=== PATIENT | male | born 1950 | race Caucasian/White ===

== ENCOUNTER → 2016-06-30 | Outpatient (CLI) | payer MEDICARE ==
[2015-08-29] VITALS: BP 129/76
[~2016-06-30] MED LIST: ASPI81TA2 PO; CETI10TA22 PO; COLE3.754 PO; LISI10TA2 PO
--- NOTE | 2016-06-30 16:40 | RAD ---
Examination: CT head without contrast History: History of severe headache, drainage from sinuses for 2 to 3 weeks Comparison: 08/28/2015 Technique: Axial CT images of the head was performed without contrast PQRS Compliance Statement: One or more of the following individualized dose reduction techniques were utilized for this examination: 1. Automated exposure control 2. Adjustment of the mA and/or kV according to patient size 3. Use of iterative reconstruction technique Findings: There is no evidence of midline shift. There is no acute intracranial bleed or extraaxial fluid collection identified. The artis-white matter differentiation is maintained. The lateral ventricles, third ventricle, fourth ventricle are appropriate for age. The basal cisterns are uneffaced. The visualized paranasal sinuses, mastoid air cells are clear Impression: No acute intracranial findings.
== END | disposition home or self-care (01) ==
LOC: RAD 16:05
PROVIDERS: ATTEND Family Medicine
DX: R53.81 Other malaise (principal); R51 Headache
CPT/HCPCS: 70450

== ENCOUNTER 2016-07-09 23:39 | Emergency (ER) | payer MEDICARE ==
[~2016-07-09] VITALS: Ht 170.2 cm; Wt 83.5 kg
--- NOTE | 2016-07-09 23:44 | PHYS DOC ---
General Time Seen by MD: 23:42 Source: patient, family Problems: History of Present Illness Initial Comments Patient here with his for possible allergic reaction. Patient was doing fairly well over the course today when about an hour ago his noted that he was turning red. Since that time, is any increasing redness over the face, upper extremity is, and torso, as well as a feeling of warmth and itchiness. He now feels like his throat is slightly tightly slightly short of breath and nauseated as well. He's had no fever or chills today. His said he did have a temperature of 99.8 this morning. There is no runny nose or sore throat. There is no earache. There is no cough. There is no other chest pain or shortness of breath other than some very slight dyspnea at this time. There is no vomiting. No abdominal pain. There is no change amount of bladder habits. He denies any acute focal extremity or neurologic complaints. Patient is done nothing for this at home other than present for care. Patient has recently been on a ten-day course of Septra for which she was prescribed for sinusitis. He has 1 tablet left. He has no other new medications of any kind is used, and no other new [id number] products. There is no new bath or body products, no chemical exposures, no new foods, no new clothes, no new laundry detergents or soaps. There is no other new exposures of any kind. There is no other increased or decreasing factors noted. He says he never had a reaction like this before. Patient's past medical history is remarkable for high blood pressure. He also says he has eczema. He is a nonsmoker and occasional user of ethanol. Allergies: Coded Allergies: Penicillins (Verified Allergy, Unknown, 08/28/15) Past Medical History Medical History: hypertension Social History Smoker: non-smoker Alcohol: occasionally Review of Systems All Other Systems: Reviewed and Negative Physical Exam General Appearance: WD/WN, no apparent distress Ear, Nose, Throat: normal ENT inspection, normal pharynx Neck: full range of motion, supple, normal inspection Respiratory: lungs clear, normal breath sounds, no respiratory distress Cardiovascular: regular rate, rhythm, no edema, no gallop Gastrointestinal: non tender, soft, no organomegaly Back: no CVA tenderness, no vertebral tenderness Extremities: non-tender Neurologic/Psychiatric: alert, normal mood/affect, oriented x 3 Skin: normal color, rash Comments Generally this is a well-developed well-nourished white male in no acute distress. Vitals are as noted. Pertinent findings on physical exam shows ears and throat to be clear. There is no dysphagia or dysphonia or problems with secretions noted. Neck is supple without adenopathy or JVD. There's no meningeal signs. Chest is clear to auscultation bilaterally. There is no wheeze. There is good airflow. There is no tachypnea and no retractions. He verbalizes without difficulty. He's in no respiratory distress. Cardiac vascular exam shows regular rate and rhythm without murmur. The abdomen is soft and nontender. Back shows no CVA tenderness. Extremities show no cyanosis or edema. Patient does have a fairly confluent erythema over the face and the upper arms, which becomes more discrete as one moves lower in the upper extremity is. Over the torso, the patient has a rash consisting of discrete well -circumscribed red macules over the chest, back, and abdomen. There is no urticaria. There is no signs of cellulitis or infection. Overall, this is consistent with a possible drug reaction. Lower extremity is relatively clear. Neurologic exam finds be awake alert oriented and cooperative. Remainder of physical exam is clinically unremarkable. Orders, Labs, Meds Old charts note a single prior ER visit for leg cramping. 0050 Patient resting comfortably in the ED. His rash is still present, but less fiery red, and he looks more comfortable as well. also thinks he significantly improved. He continues to have no problems with dysphasia or dysphonia continues to have no signs of respiratory distress. I discussed with the patient's most likely diagnosis of probable drug reaction. This is likely due to the Septra. He only has one dose left, and I last stop the Septra. We'll go ahead and prescribe Benadryl Pepcid and prednisone for his use at home over the next several well. We also discussed home care including rest and cool compresses the areas of rash. He voices understanding need to follow up with primary care or return to the ER sooner needed as needed if worsening anyway. We've asked especially to return for throat tightness, dysphagia, dysphonia, or shortness of breath. His and he both seem reasonably medically aware and I think she will help take excellent care of the patient home. Patient looks improved, in no acute discomfort or stress, okay for discharge home at this time. HORACE SIERRA MD Jul 09, 2016 23:44
[2016-07-10] MEDS ORDERED: methylPREDNISolone SOD SUCC PF 125 MG/2 ML VIAL. IV ONE
[2016-07-10] MEDS ORDERED: DIPHENHYDRAMINE 50 MG/ML VIAL IVP ONE
[2016-07-10] MEDS ORDERED: FAMOTIDINE 20 MG/2 ML VIAL IVP ONE
[2016-07-10 01:04] VITALS: BP 130/51
== END 2016-07-10 01:07 | disposition home or self-care (01) ==
LOC: ER 23:39
DX: R06.02 Shortness of breath (principal); R11.0 Nausea; R21 Rash and other nonspecific skin eruption; I10 Essential (primary) hypertension; Z88.0 Allergy status to penicillin
CPT/HCPCS: 96374; 96375; 99284; J1200; J2930; S0028

== ENCOUNTER 2017-03-11 14:15 | Emergency (ER) | payer MEDICARE ==
[~2017-03-11 14:15] MED LIST changes: +ASPI-630 PO; -ASPI81TA2 PO; +COLE3.753 PO; -COLE3.754 PO
[2017-03-11 14:18] VITALS: BP 154/73
[2017-03-11] MEDS ORDERED: DIPHTH,PERTUSS(ACELL),TET TOX 0.5 ML DISP.SYRIN. VAX IM ONE (14:45)
[2017-03-11] MEDS ORDERED: DOXY100C2 PO (15:12)
--- NOTE | 2017-03-11 15:13 | PHYS DOC ---
Past History Past Medical History: High Cholesterol, Hypertension Past Surgical History: No Surgical History Alcohol Use: None Drug Use: None Adult General Chief Complaint Chief Complaint: LACERATION/AVULSION HPI HPI Patient is a 66-year-old gentleman who presents here today secondary to laceration to his left thumb. Patient is concerned that it was dirty. Patient thinks that there was dirt and duy metal in there. Patient reports that he removed 2 pieces of small duy metal from his thumb laceration prior to arrival. Patient has no other complaints. Patient's tetanus status is not up-to- date. Patient has no neurological deficits. Review of systems: Constitutional: Denies fever or chills Eyes: Denies change in visual acuity, redness, or eye pain HENT: Denies nasal congestion or sore throat Respiratory: Denies cough or shortness of breath All other systems were reviewed and found to be within normal limits, except as documented in this note. Physical exam: Constitutional: Well developed, well nourished, no acute distress, non-toxic appearance. HENT: Normocephalic, atraumatic, bilateral external ears normal, nose normal. Eyes: PERRLA, EOMI, conjunctiva normal, no discharge. Neck: Normal range of motion, no tenderness, supple, no stridor. Back: Normal spinal curvature Extremities: No tenderness, no cyanosis, no clubbing, ROM intact, no edema. Neurologic: Alert and oriented X 3, normal motor function, normal sensory function, no focal deficits noted. Psychologic: Affect normal, judgement normal, mood normal. Patient's ER physical exam was most unremarkable: Left thumb IP joint with a 2 cm horizontal laceration. No foreign body identified. Wound was anesthetized with 1 mL of plain lidocaine. Wound was explored extensively and there is no further any foreign bodies visualized. Wound was irrigated with 100 mL of normal saline with high flow irrigation. X-ray of left thumb reveals no foreign body. Assessment and plan: 1. Laceration to thumb. No indication for suture. We will apply Dermabond and put a thumb splint on. Patient be sent home with Keflex secondary to the nature of how dirty wound was per his report. Current Medications Current Medications Current Medications Medications (Trade) Dose Ordered Sig/Demarco Start Time Stop Time Status Last Admin Dose Admin Diphtheria/ Tetanus/Acell Pertussis (Boostrix) 0.5 ml ONCE ONCE 03/11/17 14:45 03/11/17 14:47 DC Allergies Allergies Allergies Coded Allergies Type Severity Reaction Last Updated Verified Penicillins Allergy Unknown 08/28/15 Yes sulfamethoxazole Allergy Unknown 03/11/17 Yes trimethoprim Allergy Unknown 03/11/17 Yes EKG EKG [] Radiology/Procedures Radiology/Procedures [] Course & Med Decision Making Course & Med Decision Making Pertinent Labs and Imaging studies reviewed. (See chart for details) [] Dragon Disclaimer Dragon Disclaimer This electronic medical record was generated, in whole or in part, using a voice recognition dictation system. Departure Departure: Impression: Primary Impression: Laceration of left thumb Disposition: HOME, SELF-CARE Condition: IMPROVED Referrals: FELIBERTO ABRAHAM (PCP) Patient Instructions: Wound Care, [id number] Additional Instructions: 1. Take antibiotics as prescribed. 2. Leave splint on for 5-7 days.\ 3. Return to the ER if any redness swelling increased pain or drainage.. Scripts Doxycycline Hyclate (DOXYCYCLINE HYCLATE) 100 Mg Capsule 1 CAP PO BID, #14 CAP Prov: KASSANDRA TOPETE MD 03/11/17 KASSANDRA TOPETE MD Mar 11, 2017 15:13
[2017-03-11] MEDS ORDERED: DOXYCYCLINE HYCLATE 100 MG TABLET PO ONE (15:30)
--- NOTE | 2017-03-12 08:10 | RAD ---
FINGER(S) LEFT History: Cut left thumb on a blade today, hand pain Comparison: None Findings:3 views of the left hand with attention to the first digit are submitted. No radiopaque foreign body or acute fracture is identified. Impression: 1.No acute osseous abnormality or radiopaque foreign body is identified.
== END 2017-03-11 15:23 | disposition home or self-care (01) ==
LOC: ER 14:15
DX: S61.012A Laceration without foreign body of left thumb without damage to nail, initial encounter (principal); E78.00 Pure hypercholesterolemia, unspecified; I10 Essential (primary) hypertension; Z88.1 Allergy status to other antibiotic agents; Z88.0 Allergy status to penicillin; X18.XXXA Contact with other hot metals, initial encounter; Y93.89 Activity, other specified; Y99.8 Other external cause status; Y92.89 Other specified places as the place of occurrence of the external cause
CPT/HCPCS: 29130; 73140; 90471; 90715; 99284-25

== ENCOUNTER 2017-05-26 14:54 | Emergency (ER) | payer MEDICARE ==
[~2017-05-26] VITALS: Ht 170.2 cm; Wt 81.6 kg
[~2017-05-26 14:54] MED LIST changes: +DOXY100C2 PO
[2017-05-26 16:13] LABS: INFLUENZA A PATIENT NEGATIVE (NEGATIVE); INFLUENZA B PATIENT NEGATIVE (NEGATIVE)
--- NOTE | 2017-05-26 16:44 | PHYS DOC ---
General Chief Complaint: FLU SYMPTOM Stated Complaint: FEVER,HEADACHE Time Seen by MD: 15:30 Source: patient Exam Limitations: no limitations Problems: History of Present Illness Initial Comments Patient is a 66-year-old male who comes to the ED. Patient states earlier today he developed sudden onset chills and sweats with headache and myalgias, dry cough with clear nasal discharge and nausea. Fears she may have influenza, denies vomiting or diarrhea no rash or neck stiffness no chest pain or trouble breathing. Timing/Duration: 4-6 hours Severity: severe Modifying Factors: improves with other Associated Symptoms: diaphoresis, fever/chills, headaches, malaise, nausea/ vomiting Allergies: Coded Allergies: Penicillins (Verified Allergy, Unknown, 08/28/15) sulfamethoxazole (Verified Allergy, Unknown, 03/11/17) trimethoprim (Verified Allergy, Unknown, 03/11/17) Past Medical History Medical History: hypertension Surgical History: noncontributory Social History Smoker: non-smoker Alcohol: occasionally Drugs: none Review of Systems Constitutional: chills Respiratory: see HPI Cardiovascular: denies chest pain, denies palpitations Gastrointestinal: denies abdominal pain, nausea, denies vomiting Musculoskeletal: see HPI, denies back pain, denies joint pain, muscle pain, denies neck pain Psychiatric/Neurological: headache, denies numbness, denies paresthesia Physical Exam General Appearance: no apparent distress (ill appearing) Eyes: bilateral eye normal inspection, bilateral eye PERRL, bilateral eye EOMI Ear, Nose, Throat: hearing grossly normal, normal ENT inspection, normal pharynx Neck: non-tender, supple Respiratory: normal breath sounds, no respiratory distress Cardiovascular: normal peripheral pulses, regular rate, rhythm Gastrointestinal: non tender, soft Extremities: non-tender, normal inspection Neurologic/Psychiatric: alert, oriented x 3 Skin: normal color, warm/dry Orders, Labs, Meds Influenza A and B are negative Patient's symptoms are consistent with influenza, could be false negative due to temporal nature of symptoms. As today is Monday will go ahead and treat with Tamiflu empirically. Departure Time of Disposition: 16:43 Disposition: 01 HOME, SELF-CARE Diagnosis: febrile illness Condition: GOOD Patient Instructions: Influenza, Adult, [id number] Additional Instructions: Please review the patient education materials given by ED staff. As discussed influenza testing was negative in the emergency department. However given the nature of your symptoms and the false-negative rate of the rapid testing will treat with Tamiflu. [id number] Tylenol and ibuprofen as needed. Aggressive hydration to prevent dehydration. Prescription: Tamiflu Follow-up with your doctor in 5 days if no improvement. Return to ED with new or changing symptoms. ZACHARIAH NELSON DO May 26, 2017 16:44
[2017-05-26 16:52] VITALS: BP 146/82
== END 2017-05-26 16:53 | disposition home or self-care (01) ==
LOC: ER 14:54
DX: R50.9 Fever, unspecified (principal); R51 Headache; I10 Essential (primary) hypertension; Z88.0 Allergy status to penicillin; Z88.2 Allergy status to sulfonamides; Z88.1 Allergy status to other antibiotic agents
CPT/HCPCS: 87804; 99284

== ENCOUNTER → 2017-09-01 | Outpatient (CLI) | payer MEDICARE ==
[~2017-09-01] MED LIST changes: +IOHEXOL 240 MG/ML 50ML VIAL. ONE; +IOHEXOL 300 MG/ML 75 ML VIAL. IV ONE
[2017-09-01 09:31] LABS: CREATININE 1.2 mg/dL (0.7-1.3); GFR 60.4
--- NOTE | 2017-09-01 17:10 | RAD ---
CT Abdomen and Pelvis With Intravenous Contrast: History: Umbilical hernia. Comparison: CT abdomen pelvis March 03, 2013. Technique: After administration of oral and intravenous contrast, 75 mL Omnipaque-300, CT of the abdomen and pelvis was performed. Exposure: One or more of the following individualized dose reduction techniques were utilized for this examination: 1. Automated exposure control 2. Adjustment of the mA and/or kV according to patient size 3. Use of iterative reconstruction technique Findings: Fatty liver disease is seen. Spleen, pancreas, gallbladder, and bilateral adrenal glands are unremarkable. Bilateral kidneys enhance symmetrically. Aortic atherosclerosis is seen. Colonic diverticulosis is noted, but no diverticulitis is appreciated. Appendix is without evidence of inflammation. No free air free fluid is seen in the abdomen or pelvis. There has been interval left inguinal herniorrhaphy. There is a small fat-containing umbilical hernia. Hernia defect measures 1 cm in craniocaudal dimension by 1.2 cm in transverse dimension. Prostate is enlarged. There are multiple small densities located in the lumen of the urinary bladder adjacent to the prostate, thought to represent multiple small bladder stones ranging in size from punctate to 3 mm. There is grade 1 spondylolisthesis at L5-S1, may be due to bilateral L5 pars defects. Degenerative disc disease is seen from L3-4 through L5-S1. Impression: 1. Small fat-containing umbilical hernia. 2. Interval left inguinal herniorrhaphy. No recurrent hernia is identified. 3. Enlargement of the prostate. Multiple densities involving the urinary bladder are favored represent multiple small stones. 4. Fatty liver disease. Electronically signed by: Xavier Tompkins MD (09/01/2017 5:07 PM) [place] [id number]
== END | disposition home or self-care (01) ==
LOC: CT 08:15
PROVIDERS: ATTEND Surgery
DX: K42.9 Umbilical hernia without obstruction or gangrene (principal); N40.0 Benign prostatic hyperplasia without lower urinary tract symptoms; K76.0 Fatty (change of) liver, not elsewhere classified; M43.17 Spondylolisthesis, lumbosacral region; M51.37 Other intervertebral disc degeneration, lumbosacral region; K57.30 Diverticulosis of large intestine without perforation or abscess without bleeding
CPT/HCPCS: 36415; 74177; 82565; 84520; Q9966; Q9967

== ENCOUNTER 2018-09-18 08:41 | Emergency (ER) | payer MEDICARE ==
[~2018-09-18 08:41] MED LIST changes: -IOHEXOL 240 MG/ML 50ML VIAL. ONE; -IOHEXOL 300 MG/ML 75 ML VIAL. IV ONE
[2018-09-18 08:54] VITALS: BP 134/86
[2018-09-18] MEDS ORDERED: ONDANSETRON PF 4 MG/2 ML VIAL. IV ONE (09:00)
[2018-09-18] MEDS ORDERED: FAMOTIDINE 20 MG/2 ML VIAL IVP ONE (09:00)
[2018-09-18] MEDS ORDERED: IV NORMAL SALINE 1,000ML 1,000 ML IV ONE ×2 (09:00→09:45)
--- NOTE | 2018-09-18 09:08 | PHYS DOC ---
Past History Past Medical History: Diverticulitis, Hypertension Past Surgical History: Knee Replacement, Other Smoking: Non-smoker Alcohol Use: Occasionally Drug Use: None Adult General Chief Complaint Chief Complaint: ABDOMINAL PAIN HPI HPI 68-year-old male presents with one-day history of left-sided abdominal pain with associated nausea and diarrhea. Patient reports he sentences a "pressure" buildup in his abdomen and then he needs to use the bathroom. Patient reports during these periods he feels short of breath. The street of to other sick contacts with similar who all ate lunch together yesterday. Spouse reports she was also there and has not had any issue. Patient denies any fever. Reports generalized malaise. Denies trauma. Review of Systems Review of Systems Constitutional: Denies fever or chills Eyes: Denies redness or eye pain HENT: Denies nasal congestion or sore throat Respiratory: Denies cough or shortness of breath Cardiovascular: Denies chest pain or palpitations GI: Reports abdominal pain, nausea, and diarrhea : Denies dysuria or hematuria Musculoskeletal: Denies back pain or joint pain Integument: Denies rash or skin lesions Neurologic: Denies headache, focal weakness or sensory changes Complete systems were reviewed and found to be within normal limits, except as documented in this note. Current Medications Current Medications Current Medications Medications (Trade) Dose Ordered Sig/Demarco Start Time Stop Time Status Last Admin Dose Admin Famotidine (Pepcid Vial) 20 mg 1X ONCE 09/18/18 09:00 09/18/18 09:01 UNV Ketorolac Tromethamine (Toradol 30mg Vial) 15 mg 1X ONCE 09/18/18 09:00 09/18/18 09:01 UNV Ondansetron HCl (Zofran) 4 mg 1X ONCE 09/18/18 09:00 09/18/18 09:01 UNV Sodium Chloride 1,000 ml @ 1,000 mls/hr 1X ONCE 09/18/18 09:00 09/18/18 09:59 UNV Allergies Allergies Allergies Coded Allergies Type Severity Reaction Last Updated Verified Penicillins Allergy Unknown 08/28/15 Yes sulfamethoxazole Allergy Unknown 03/11/17 Yes trimethoprim Allergy Unknown 03/11/17 Yes Physical Exam Physical Exam Constitutional: Well developed, well nourished, appears uncomfortable, non-toxic appearance HENT: Normocephalic, atraumatic, oropharynx moist Eyes: Conjunctiva normal, no discharge Neck: Normal range of motion, no tenderness, supple Cardiovascular: Heart rate normal, regular rhythm Lungs & Thorax: Bilateral breath sounds clear to auscultation, no wheezing Abdomen: Soft, LUQ pain on palpation, mild distention Skin: Warm, dry, no erythema, no rash Back: No tenderness, no CVA tenderness Extremities: No tenderness, ROM intact, no edema Neurologic: Alert and oriented X 3, no focal deficits noted Psychologic: Affect normal, judgement normal, mood normal EKG EKG @0855 NSR at 72bpm, NO ST elevation, Q wave noted to III. Radiology/Procedures Radiology/Procedures PROCEDURE: CT ABD PELV W/ IV CONTRST ONLY CT scan of the abdomen and pelvis with contrast 09/18/2018 CLINICAL HISTORY: Left-sided abdominal pain. TECHNIQUE: After the intravenous administration 75 cc of Omnipaque 300, contiguous, 5 mm axial sections were obtained through the abdomen and pelvis. One or more of the following individualized dose reduction techniques were utilized for this study: 1. Automated exposure control. 2. Adjustment of the mA and/or kV according to patient size. 3. Use of iterative reconstruction technique. FINDINGS: Comparison study is dated 09/01/2017. Images through the lung bases demonstrate minimal dependent subsegmental atelectasis bilaterally. The liver parenchyma has a decreased attenuation consistent with fatty infiltration. The spleen, pancreas, adrenal glands and kidneys are within normal limits. Atherosclerotic calcification of the abdominal aorta is seen. The abdominal aorta tapers normally. The gallbladder is slightly contracted. No free fluid or free air is seen within the abdomen. There is no evidence of bowel obstruction. The appendix is well-visualized and is within normal limits. Images through the pelvis demonstrate the urinary bladder distended with urine. Multiple dependent calculi are seen within the urinary bladder which measure 2 mm to 1 cm in size. The prostate gland is enlarged likely related to BPH. It measures 6.8 x 6.1 x 5.5 cm in craniocaudal, transverse and AP dimensions. The patient is post bilateral inguinal herniorrhaphy. No free fluid is seen. Very mild S-shaped curvature of the thoracolumbar spine is seen. Degenerative changes are seen throughout the lower thoracic and throughout the lumbar disc spaces both hips. Bilateral spondylolysis is seen at L5. Grade 1 spondylolisthesis of L5 in relation S1 is noted. Degenerative changes are seen at L5-S1 consisting of disc space narrowing, vacuum disc phenomenon, vertebral endplate sclerosis and mild anterior and posterior vertebral body osteophyte formation. IMPRESSION: No acute abnormality is seen. Electronically signed by: Fabian Morrison MD (09/18/2018 10:21 AM) [facility] Course & Med Decision Making Course & Med Decision Making Pertinent Labs and Imaging studies reviewed. (See chart for details) Patient presents with report of left-sided abdominal pain with associated nausea and diarrhea. Positive sick contacts who have similar. Patient does have a history of diverticulitis. Labs obtained and posted to chart. Lactic acid elevated. Patient without SIRS criteria. Doubt sepsis. IVF hydration given. EKG stable. CT abdomen/pelvis without acute process. Symptomatic treatment provided. Patient reports interval improvement of symptoms. Patient stable for discharge with outpatient follow-up with PCP/GI. GI referral provided. Discussed findings and plan with patient and family, who acknowledge understanding and agreement. Dragon Disclaimer Dragon Disclaimer This electronic medical record was generated, in whole or in part, using a voice recognition dictation system. Departure Departure: Impression: Primary Impression: Abdominal pain Additional Impressions: Nausea vomiting and diarrhea Lactic acidosis Disposition: 01 HOME, SELF-CARE Condition: STABLE Referrals: FELIBERTO ABRAHAM (PCP) CATHERINE KIDD MD Patient Instructions: Abdominal Pain (Nonspecific), Viral Gastroenteritis, [id number] Additional Instructions: Increase fluid hydration. Scripts Hyoscyamine Sulfate (LEVSIN-SL) 0.125 Mg Tab.subl 1-2 TAB SL PRN Q4HRS PRN for PAIN, #20 TAB Prov: GISELLE SIMONS DO 09/18/18 Famotidine (PEPCID) 20 Mg Tablet 1 TAB PO BID for gastritis, #30 TAB Prov: GISELLE SIMONS DO 09/18/18 Ondansetron (ONDANSETRON ODT) 4 Mg Tab.rapdis 1 TAB PO PRN Q6-8HRS PRN for NAUSEA, #16 TAB Prov: GISELLE SIMONS DO 09/18/18 Problem Qualifiers Primary Impression: Abdominal pain Abdominal location: unspecified location Qualified Codes: R10.9 - Unspecified abdominal pain GISELLE SIMONS DO Sep 18, 2018 09:08
[2018-09-18] MEDS ORDERED: KETOROLAC 15 MG/ML VIAL. IV ONE (09:15)
[2018-09-18 09:18] LABS: BASO # 0.1 x10^3/uL (0.0-0.2); BASO % 1 % (0-3); EOS % 0 % (0-3); HEMATOCRIT 43.1 % (39.0-53.0); HEMOGLOBIN 14.4 g/dL (13.0-17.5); LYMPH # 0.9 x10^3/uL (1.0-4.8); LYMPH % 12 % (24-48); MEAN CORPUSCULAR HEMOGLOBIN 30 pg (25-35); MEAN CORPUSCULAR HGB CONC 34 g/dL (31-37); MEAN CORPUSCULAR VOLUME 91 fL (79-100); MONO # 0.6 x10^3/uL (0.0-1.1); MONO % 8 % (0-9); NEUT # 5.9 x10^3uL (1.8-7.7); NEUT % 79 % (31-73); PLATELET COUNT 278 x10^3/uL (140-400); RED BLOOD COUNT 4.76 x10^6/uL (4.30-5.70); WHITE BLOOD COUNT 7.5 x10^3/uL (4.0-11.0)
[2018-09-18] MEDS ORDERED: IOHEXOL 300 MG/ML 75 ML VIAL. IV ONE (09:30)
[2018-09-18 09:35] LABS: ALBUMIN 3.7 g/dL (3.4-5.0); ALBUMIN/GLOBULIN RATIO 1.2 (1.0-1.7); CALCIUM 9.1 mg/dL (8.5-10.1); CREATININE 1.3 mg/dL (0.7-1.3); GFR 54.9; MAGNESIUM 1.8 mg/dL (1.8-2.4); POTASSIUM 3.8 mmol/L (3.5-5.1); TOTAL BILIRUBIN 0.6 mg/dL (0.2-1.0); TOTAL PROTEIN 6.8 g/dL (6.4-8.2)
[2018-09-18 09:47] LABS: CLARITY,URINE CLOUDY; COLOR,URINE YELLOW
[2018-09-18 09:48] LABS: AMORPHOUS SEDIMENT,UR PRESENT /HPF; BACTERIA,URINE 0 /HPF (0-FEW); BILIRUBIN,URINE NEG (NEG); GLUCOSE,URINE NEG (NEG); NITRITE,URINE NEG (NEG); RBC,URINE 0 /HPF (0-2); UROBILINOGEN,URINE 0.2 mg/dL (0.2 mg/dL); WBC,URINE RARE /HPF (0-4)
--- NOTE | 2018-09-18 10:24 | RAD ---
CT scan of the abdomen and pelvis with contrast 09/18/2018 CLINICAL HISTORY: Left-sided abdominal pain. TECHNIQUE: After the intravenous administration 75 cc of Omnipaque 300, contiguous, 5 mm axial sections were obtained through the abdomen and pelvis. One or more of the following individualized dose reduction techniques were utilized for this study: 1. Automated exposure control. 2. Adjustment of the mA and/or kV according to patient size. 3. Use of iterative reconstruction technique. FINDINGS: Comparison study is dated 09/01/2017. Images through the lung bases demonstrate minimal dependent subsegmental atelectasis bilaterally. The liver parenchyma has a decreased attenuation consistent with fatty infiltration. The spleen, pancreas, adrenal glands and kidneys are within normal limits. Atherosclerotic calcification of the abdominal aorta is seen. The abdominal aorta tapers normally. The gallbladder is slightly contracted. No free fluid or free air is seen within the abdomen. There is no evidence of bowel obstruction. The appendix is well-visualized and is within normal limits. Images through the pelvis demonstrate the urinary bladder distended with urine. Multiple dependent calculi are seen within the urinary bladder which measure 2 mm to 1 cm in size. The prostate gland is enlarged likely related to BPH. It measures 6.8 x 6.1 x 5.5 cm in craniocaudal, transverse and AP dimensions. The patient is post bilateral inguinal herniorrhaphy. No free fluid is seen. Very mild S-shaped curvature of the thoracolumbar spine is seen. Degenerative changes are seen throughout the lower thoracic and throughout the lumbar disc spaces both hips. Bilateral spondylolysis is seen at L5. Grade 1 spondylolisthesis of L5 in relation S1 is noted. Degenerative changes are seen at L5-S1 consisting of disc space narrowing, vacuum disc phenomenon, vertebral endplate sclerosis and mild anterior and posterior vertebral body osteophyte formation. IMPRESSION: No acute abnormality is seen. Electronically signed by: Fabian Morrison MD (09/18/2018 10:21 AM) [facility]
[2018-09-18] MEDS ORDERED: HYOS0.1265 SL (10:41)
[2018-09-18] MEDS ORDERED: ONDA4TAB12 PO (10:41)
[2018-09-18] MEDS ORDERED: FAMO-63 PO (10:41)
--- NOTE | 2018-09-18 14:54 | EKG ---
[address] [address] Test Date: 2018-09-18 Test Time: 08:55:00 Pat Name: CHELLE CORREA Department: Room: Gender: M Application Consultant: : 1950 Requested By: GISELLE SIMONS Order Number: [id number] Reading MD: Measurements Intervals Weir Rate: 72 P: 60 NH: 176 QRS: 30 QRSD: 86 T: 32 QT: 408 QTc: 448 Interpretive Statements SINUS RHYTHM LEFT ATRIAL ABNORMALITY ABNORMAL ECG RI6.01 No previous ECG available for comparison
== END 2018-09-18 10:47 | disposition home or self-care (01) ==
LOC: ER 08:41
DX: R10.32 Left lower quadrant pain (principal); E87.2 Acidosis; R11.2 Nausea with vomiting, unspecified; R19.7 Diarrhea, unspecified; I10 Essential (primary) hypertension; Z88.0 Allergy status to penicillin; Z88.1 Allergy status to other antibiotic agents; Z88.2 Allergy status to sulfonamides
CPT/HCPCS: 36415; 74177; 80053; 81001; 82553; 83605; 83690; 83735; 84484; 85025; 93005; 96361; 96374; 96375; 99285; J1885; J2405; J3490; Q9967; J7030

== ENCOUNTER → 2020-10-06 | Outpatient (CLI) | payer MEDICARE ==
[~2020-10-06] MED LIST changes: -CETI10TA22 PO; +CETI10TA74 PO; +FAMO-63 PO; +HYOS0.1265 SL; +LISI10TA16 PO; -LISI10TA2 PO; +ONDA4TAB12 PO
--- NOTE | 2020-10-06 16:00 | RAD ---
PQRS Compliance Statement: One or more of the following individualized dose reduction techniques were utilized for this examinat ion: 1. Automated exposure control 2. Adjustment of the mA and/or kV according to patient size 3. Use of iterative reconstruction technique CT CHEST WITHOUT CONTRAST, CT THORACIC SPINE WO 10/06/2020 12:59 PM Indication: Mid back pain with concern for rib fracture. COMPARISON: None available. TECHNIQUE: Multiple axial CT images of the chest were obtained without intravenous contrast. Coronal and sagittal reformats provided. 2-D reformats of the thoracic spine were obtained. FINDINGS: Thyroid gland is normal in appearance. No pathologically enlarged thoracic lymph nodes. Heart size wi thin normal limits. No pericardial effusion. Small hiatal hernia. There is a 2 mm solid noncalcified pulmonary nodule in the left upper lobe (series 2, image 32). Subpleural reticular interstitial magallon es identified within right middle lobe suggestive of subsegmental atelectasis or scarring. No pleural effusions, pulmonary vascular congestion or pneumothorax. Lungs are otherwise clear. Mild hepatic st eatosis. Gallbladder is present. Adrenal glands and spleen are normal as visualized. No suspicious he patic mass. Clavicles and scapula are intact. No acutely displaced rib fracture is identified. Alignment of thora cic spine is normal. Vertebral body heights are maintained. Posterior elements are intact. No signifi cant facet arthropathy. No significant osseous neuroforaminal or spinal canal stenosis. Spinous proce sses are intact. Mild anterior marginal osteophytosis. Disc heights are maintained. IMPRESSION: 1. No acute fracture or malalignment of the thoracic spine. No acutely displaced rib fracture is iden tified. 2. 2 mm solid noncalcified pulmonary nodule in the left upper lobe. Fleischner guidelines for inciden tally detected pulmonary nodules suggests no routine follow-up for low risk patients and optional CT at 12 months for high risk patients with solid noncalcified pulmonary nodules less than 6 mm in size. Electronically signed by: Aishwarya Scherer MD (10/06/2020 3:58 PM) [id number]
== END ==
LOC: CT 12:41
PROVIDERS: ATTEND Orthopaedic Surgery Sports Medicine
DX: R91.8 Other nonspecific abnormal finding of lung field (principal)
CPT/HCPCS: 72128

== ENCOUNTER → 2020-12-31 | Outpatient (CLI) | payer MEDICARE ==
[~2020-12-31] MED LIST changes: -DOXY100C2 PO; +DOXY100C3 PO
--- NOTE | 2020-12-31 12:17 | RAD ---
EXAM: Left index finger, 3 views. HISTORY: Blunt trauma. COMPARISON: None. FINDINGS: 3 views of the left index finger are obtained. There is left index finger soft tissue swell ing and overlying bandage material. No foreign body or fracture is seen. IMPRESSION: Left index finger soft tissue swelling. No foreign body or fracture is seen. Electronically signed by: Lisset Lancaster MD (12/31/2020 12:14 PM) [id number]
== END ==
LOC: RAD 11:23
PROVIDERS: ATTEND Physician Assistant
DX: S67.191A Crushing injury of left index finger, initial encounter (principal); M79.89 Other specified soft tissue disorders; X58.XXXA Exposure to other specified factors, initial encounter; Y93.89 Activity, other specified; Y92.89 Other specified places as the place of occurrence of the external cause; Y99.8 Other external cause status
CPT/HCPCS: 73140